=== PATIENT | female | born 1995 | race African-American/Black ===

== ENCOUNTER 2017-01-08 14:38 | Emergency (ER) | payer MEDICAID ==
[~2017-01-08] VITALS: Ht 157.5 cm; Wt 76.8 kg
[~2017-01-08 14:38] MED LIST: KCL10C PO; PREN0.01 PO; ZOFR4TAB3 PO
[2017-01-08 14:40] VITALS: BP 123/83; PULSE 82; RESP 16; TEMP 97.7; O2SAT 97
[2017-01-08 15:02] LABS: BLOOD, URINE NEG (NEG); GLUCOSE,URINE NEG (NEG); KETONE, URINE NEG (NEG); NITRITE,URINE NEG (NEG)
[2017-01-08 15:06] LABS: URINE COLOR YELLOW (YELLW/STRAW)
[2017-01-08 15:12] LABS: BACTERIA, URINE RARE /hpf; COMMENT (UR) CULT NOT INDICATED; CULTURE IF INDICATED CULT NOT INDICATED; MUCUS URINE RARE /lpf (OCC); SQUAMOUS EPITHELIAL CELL URINE 0-5 /hpf (0-5)
--- NOTE | 2017-01-08 16:37 | PD ---
HPI Chief Complaint: Abdominal Pain Time Seen by Provider: 15:17 Travel History International Travel<30 days: No Contact w/Intl Traveler<30days: No Traveled to known affect area: No History of Present Illness HPI 21 yo F underwent about [address] Agarwal. Following this a resection she developed an infection. She follow-up at the gynecology office once and was advised that her postoperative course was normal after she underwent treatment for infection. She began working several days prior. She walks about 12 hours a day and notes that all this time on her feet is making pain in the region of the right abdomen worse. There is no other specific medical complaint offered right now. Family is concerned insufficient evaluation for residual complications may warrant further investigation today. PFSH Past Medical History ADHD: No Anxiety: Yes Depression: Yes Cancer: No Cardiovascular Problems: No Diabetes: No Diminished Hearing: No Psychiatric: Yes (DEPRESSION, ANXIETY) Immunizations Current: Yes Migraines: No Seizures: No Thyroid Disease: No Ulcer: No Tetanus Vaccination: Unknown Influenza Vaccination: No ?: Unknown Menopausal: No : 1 Para: 0 Past Surgical History Section: Yes (OCTOBER 2016) Other Surgery: No Social History Alcohol Use: No Tobacco Use: No (QUIT 06/2015) Substance Use: No Allergies-Medications (Allergen,Severity, Reaction): Coded Allergies: Mushroom (Verified Allergy, Unknown, Rash, 01/08/17) Reported Meds & Prescriptions Reported Meds & Active Scripts Active No Active Prescriptions or Reported Medications Review of Systems Except as stated in HPI: all other systems reviewed are Neg General / Constitutional: No: Fever, Chills Genitourinary: Positive: Pelvic Pain, No: Urgency, Frequency, Hematuria, Decreased Urinary Output, Hesitancy, Dribbling, Incontinence, Discharge, Vaginal Bleeding Physical Exam Narrative GENERAL: 21-year-old female pleasant SKIN: Focused skin assessment warm/dry. HEAD: Atraumatic. Normocephalic. EYES: Pupils equal and round. No scleral icterus. No injection or drainage. ENT: No nasal bleeding or discharge. Mucous membranes pink and moist. NECK: Trachea midline. No JVD. CARDIOVASCULAR: Regular rate and rhythm. No murmur appreciated. RESPIRATORY: No accessory muscle use. Clear to auscultation. Breath sounds equal bilaterally. GASTROINTESTINAL: Soft. There is no tenderness with deep palpation in any part of the abdomen specifically. Percussion of the heels does not seem to elicit pain. Rovsing's/obturator signs unremarkable. MUSCULOSKELETAL: No obvious deformities. No clubbing. No cyanosis. No edema. NEUROLOGICAL: Awake and alert. No obvious cranial nerve deficits. Motor grossly within normal limits. Normal speech. PSYCHIATRIC: Appropriate mood and affect; insight and judgment normal. Data Data Last Documented VS Vital Signs Date Time Temp Pulse Resp B/P Pulse Ox O2 Delivery O2 Flow Rate FiO2 01/08/17 16:47 97.9 85 16 125/85 98 Orders Urinalysis - C+S If Indicated (01/08/17 14:43) Ed Urine Pregnancytest Poc (01/08/17 14:43) Labs Laboratory Tests Test 01/08/17 14:48 Urine Color YELLOW Urine Turbidity CLEAR Urine pH 5.0 Urine Specific [place] 1.015 Urine Protein NEG mg/dL Urine Glucose (UA) NEG mg/dL Urine Ketones NEG mg/dL Urine Occult Blood NEG Urine Nitrite NEG Urine Bilirubin NEG Urine Leukocyte Esterase NEG Urine WBC 3-5 /hpf Urine Squamous Epithelial 0-5 /hpf Cells Urine Bacteria RARE /hpf Urine Mucus RARE /lpf Microscopic Urinalysis Comment CULT NOT INDICATED MDM Medical Decision Making Medical Screen Exam Complete: Yes Emergency Medical Condition: Yes Medical Record Reviewed: Yes Differential Diagnosis Postoperative seroma abscess or suturing, or adhesion. Constipation, Gastritis, Acute Cholecystitis, Biliary Colic, Pancreatitis, BELTRAN, Hepatitis, Bowel Obstruction, Cystitis, Mesenteric Ischemia, AAA, Appendicitis, Renal Stone/ Hydronephrosis, GERD, perforated viscous Narrative Course Very thorough exam and history was performed. About 10-15 minutes of conversation ensued reassuring the mother of the patient as well as the patient herself. We talked about indications for return to work and normal postoperative recovery period for hysterectomy. All questions answered. Patient's ready for discharge. Abdominal pelvic emergency is considered quite unlikely. Diagnosis Primary Impression: Pain pelvic Referrals: [facility] 1 week Additional Instructions: You have a choice when it comes to health care, and we are glad that you chose [facility]. Hopefully, we have met your expectations on today's visit. You are welcome to return to [facility] at any time, as we are committed to meeting the health care needs of our community. Med/Other Pt SpecificInfo: No Change to Meds Scripts No Active Prescriptions or Reported Meds Disposition: 01 DISCHARGE HOME Condition: Stable Blair Ayon MD Jan 08, 2017 16:37
[2017-01-08 16:47] VITALS: BP 125/85; TEMP 97.9
== END 2017-01-08 16:49 | disposition home or self-care (01) ==
LOC: PHED 14:38
DX: R10.2 Pelvic and perineal pain (principal); F41.9 Anxiety disorder, unspecified
CPT/HCPCS: 81001; 84703; 99284

== ENCOUNTER 2017-10-13 18:06 | Emergency (ER) | payer MEDICAID ==
[~2017-10-13] VITALS: Ht 157.5 cm; Wt 72.0 kg
[2017-10-13 18:07] VITALS: BP 120/70; PULSE 88; RESP 16; TEMP 97.4; O2SAT 98
[2017-10-13 20:26] LABS: BACTERIA, URINE MOD /hpf; BILIRUBIN, URINE NEG (NEG); BLOOD, URINE NEG (NEG); GLUCOSE,URINE NEG (NEG); KETONE, URINE NEG (NEG); MUCUS URINE FEW /lpf (OCC); NITRITE,URINE NEG (NEG); PH, URINE 6.5 (5.0-8.5); SQUAMOUS EPITHELIAL CELL URINE 3 /hpf (0-5); URINE COLOR YELLOW (YELLW/STRAW); URINE LEUKOCYTE ESTERASE TRACE (NEG)
--- NOTE | 2017-10-13 20:29 | PD ---
HPI Chief Complaint: Abdominal Pain Time Seen by Provider: 18:41 Travel History International Travel<30 days: No Contact w/Intl Traveler<30days: No Traveled to known affect area: No History of Present Illness HPI 22 year-old woman, presents to the emergency department complaining of vague lower abdominal discomfort, sharp and pulling, worse when she changes position or go to lean forward. She is approximately 10 weeks with her second child. She had a with her first child, about 1 year ago. She otherwise has been feeling well. A little bit of pelvic cramping. Slight nausea. No other complaints. History Past Medical History Medical History: Denies Significant Hx Tetanus Vaccination: < 5 Years Influenza Vaccination: No LMP: 11 WEEKS Menopausal: No : 1 Para: 0 Social History Alcohol Use: No Tobacco Use: No (QUIT 06/2015) Allergies-Medications (Allergen,Severity, Reaction): Coded Allergies: mushroom (Unverified Allergy, Unknown, Rash, 10/13/17) Reported Meds & Prescriptions Reported Meds & Active Scripts Active No Active Prescriptions or Reported Medications Review of Systems Except as stated in HPI: all other systems reviewed are Neg Physical Exam Narrative GENERAL: Well during 22 year-old woman, no acute distress. SKIN: Focused skin assessment warm/dry. HEAD: Atraumatic. Normocephalic. NECK: Trachea midline. No JVD. CARDIOVASCULAR: Regular rate and rhythm. No murmur appreciated. RESPIRATORY: No accessory muscle use. Clear to auscultation. Breath sounds equal bilaterally. GASTROINTESTINAL: Abdomen soft, non-tender, nondistended. Hepatic and splenic margins not palpable. Well-healing scar. No significant tenderness. MUSCULOSKELETAL: No obvious deformities. No edema. NEUROLOGICAL: Awake and alert. No obvious cranial nerve deficits. Motor grossly within normal limits. Normal speech. PSYCHIATRIC: Appropriate mood and affect; insight and judgment normal. Data Data Last Documented VS Vital Signs Date Time Temp Pulse Resp B/P (MAP) Pulse Ox O2 Delivery O2 Flow Rate FiO2 10/13/17 18:07 97.4 88 16 120/70 (87) 98 Orders Orders Ed Poc Ultrasound (10/13/17 ) Urinalysis - C+S If Indicated (10/13/17 18:55) Labs Laboratory Tests Test 10/13/17 20:13 [facility] Medical Decision Making Medical Screen Exam Complete: Yes Emergency Medical Condition: Yes Interpretation(s) UA unremarkable. Differential Diagnosis Pain from scar adhesions, pain from , UTI, infection, other Narrative Course Medical decision making This 22-year-old presents emergent arm with sharp Scott pain, appears to be related to her scar adhesions. Worse with changes of position. Intermittent and sharp. Looks well. Benign exam. Reassuring ultrasound. Recommend follow-up with OB. Procedures Procedure Narrative Point of care ultrasound: Focus transabdominal ultrasounds performed by me at the bedside to evaluate for G her . Shaffer intrauterine temperatures identified. Estimate size 11 weeks 4 days by crown rump length. heart rate 169 by M-mode. Diagnosis Primary Impression: Pain pelvic Additional Instructions: Take significant for pain. Follow-up with your primary doctor in the next 2-4 days. Return to the emergency department for any new or worsening symptoms. Med/Other Pt SpecificInfo: No Change to Meds Scripts No Active Prescriptions or Reported Meds Disposition: 01 DISCHARGE HOME Condition: Stable Jhonny Mills MD Oct 13, 2017 20:29
== END 2017-10-13 20:30 | disposition home or self-care (01) ==
LOC: NEPD 18:06
DX: O26.891 Other specified pregnancy related conditions, first trimester (principal); R10.2 Pelvic and perineal pain; Z3A.11 11 weeks gestation of pregnancy
CPT/HCPCS: 81001; 87086